=== PATIENT | male | born 1990 | race African-American/Black ===

== ENCOUNTER 2018-01-09 20:25 | Emergency (ER) | payer BC ==
[~2018-01-09] VITALS: Ht 180.3 cm; Wt 113.4 kg
[~2018-01-09 20:25] MED LIST: CLARITIN10 MG PO
[2018-01-09 20:58] VITALS: BP 155/113
[2018-01-09] MEDS ORDERED: HTN PO (21:03)
[2018-01-09] MEDS ORDERED: TRIAMCINOLONE A80 G2 TOP (21:29)
[2018-01-09] MEDS ORDERED: CLOTRIMAZOLE 1%15 G1 TOP (21:29)
== END 2018-01-09 22:14 | disposition home or self-care (01) ==
LOC: ER 20:25
DX: R21 Rash and other nonspecific skin eruption (principal); I10 Essential (primary) hypertension